=== PATIENT | female | born 1980 | race Caucasian/White ===

== ENCOUNTER 2021-01-23 06:16 | Emergency (ER) | payer OTHER ==
[~2021-01-23] VITALS: Ht 167.6 cm; Wt 81.0 kg
[~2021-01-23 06:16] MED LIST: AMOXICILLIN875 MG PO; AUGMENTIN875TAB PO; BACTRIM DS1 TAB PO; BENZONATATE200 MG PO; FLEXERIL OR; FLONASE NASAL50 MCG; LORTAB 1010 MG PO; MUCINEX600 MG PO; NAPROSYN500 MG PO; NO; PERCOCET 5/325M1 TAB PO; PRILOSEC40 MG PO; ZITHROMAX250 MG PO; ZPAK PO
[2021-01-23] MEDS ORDERED: LACTULOSE PO (06:44)
[2021-01-23] MEDS ORDERED: TESSALON PERLE100 MG (06:44)
[2021-01-23] MEDS ORDERED: ALBUTEROL SUL0.083 % IN (06:45)
[2021-01-23] MEDS ORDERED: DEXILANT60 MG PO ×2 (06:45→07:17)
[2021-01-23] MEDS ORDERED: VENTOLIN HFA IN (07:16)
[2021-01-23] MEDS ORDERED: TESSALON PERLE100 MG PO (07:16)
[2021-01-23 07:29] LABS: GFR > 60 ML/MIN (>=60 (CALC)); GFR FOR AFR.AMER. > 60 ML/MIN (>=60 (CALC))
[2021-01-23 07:40] LABS: HEMATOCRIT 41.3 % (37.0-47.0); HEMOGLOBIN 13.4 g/dl (12.0-16.0); IMMATURE GRANULOCYTES 0.2 % (0.0-5.0); MEAN CELL VOLUME 91.8 fL CALC (80.0-100.0); MEAN CORPUSCULAR HGB 29.8 pG CALC (26.0-32.0); MEAN CORPUSCULAR HGB CONC 32.4 g/dL CAL (32.0-36.0); NEUT# 3.8 thou/uL (2.00-7.15); RED BLOOD COUNT 4.5 mill/uL (4.20-5.60); RED CELL DISTRI WIDTH 13.4 % (11.5-15.5)
[2021-01-23 07:57] LABS: ALBUMIN 3.8 g/dL (3.2-5.0); ALKALINE PHOSPHATASE 83 u/l (38-126); AMYLASE 71 u/l (30-110); ANION GAP 12 (6-22 (CALC)); BUN 14 mg/dL (7-17); BUN/CREATININE RATIO 19 (12-20 (CALC)); CARBON DIOXIDE 23 mmol/l (22-30); CHLORIDE 105 mmol/l (95-108); CREATININE 0.8 mg/dL (0.5-1.0); GFR > 60 ML/MIN (>=60 (CALC)); GFR FOR AFR.AMER. > 60 ML/MIN (>=60 (CALC)); LIPASE 174 u/l (23-300); POTASSIUM 4.2 mmol/l (3.5-5.1); SODIUM 136 mmol/l (137-146); TOTAL PROTEIN 7.4 g/dL (6.3-8.2)
[2021-01-23 07:58] LABS: BILIRUBIN, TOTAL 0.2 mg/dL (0.0-1.4); SGOT/AST 34 u/l (14-36)
[2021-01-23 08:02] LABS: URINE BILIRUBIN - DIPSTICK NEGATIVE (NEGATIVE); URINE BLOOD DIPSTICK NEGATIVE (NEGATIVE); URINE COLOR YELLOW; URINE GLUCOSE - DIPSTICK NEGATIVE (NEGATIVE); URINE KETONE NEGATIVE (NEGATIVE); URINE LEUK ESTERASE NEGATIVE (NEGATIVE); URINE PROTEIN - DIPSTICK NEGATIVE (NEG-TRACE); URINE SPECIFIC GRAVITY 1.025; URINE UROBILINOGEN - DIPSTICK 0.2 E.U./dL (0.2)
[2021-01-23 08:05] LABS: URINE NITRITE - DIPSTICK NEGATIVE (Negative)
[2021-01-23] MEDS ORDERED: DECADRON6 MG PO ×2 (10:39→14:45)
[2021-01-23] MEDS ORDERED: CITRATE OF MEGNESIA PO (10:39)
[2021-01-23] MEDS ORDERED: ZPAK PO ×2 (10:39→14:45)
[2021-01-23 10:48] VITALS: BP 112/54
[2021-01-23] MEDS ORDERED: ZOFRAN4 M1 PO ×2 (11:10→14:45)
== END 2021-01-23 11:04 | disposition home or self-care (01) | DRG 177 ==
LOC: ED 06:16
PROVIDERS: Family Medicine
DX: U07.1 COVID-19 (principal); J12.82 Pneumonia due to coronavirus disease 2019; K59.00 Constipation, unspecified; N83.201 Unspecified ovarian cyst, right side
CPT/HCPCS: Q9967

== ENCOUNTER 2024-05-02 18:58 | Emergency (ER) | payer OTHER ==
[~2024-05-02] VITALS: Ht 167.6 cm; Wt 72.0 kg
[~2024-05-02 18:58] MED LIST changes: +ALBUTEROL SUL0.083 % IN; +CITRATE OF MEGNESIA PO; +DECADRON6 MG PO; +DEXILANT60 MG PO; +LACTULOSE PO; +TESSALON PERLE100 MG; +TESSALON PERLE100 MG PO; +VENTOLIN HFA IN; +ZOFRAN4 M1 PO
[2024-05-02] MEDS ORDERED: LIDOCAINE W/ EPINEPHRINE 10 MG/ML INJ STI STA (19:37)
[2024-05-02] MEDS ORDERED: HYDROcodone 5 MG/Acetaminophen 325 MG/COMBO PO STA (19:37)
[2024-05-02] MEDS ORDERED: POVIDONE IODINE 0.5 OZ/BTL TOP STA (19:37)
[2024-05-02] MEDS ORDERED: DOXYCYCLINE HYCLATE 100 MG/CAP PO ONE (19:40)
[2024-05-02] MEDS ORDERED: VIBRAMYCIN100 M2 PO (19:58)
[2024-05-02 20:25] VITALS: BP 126/90
== END 2024-05-02 20:45 | disposition home or self-care (01) | DRG 603 ==
LOC: ED 18:58
PROC: 0H97XZZ Drainage of Abdomen Skin, External Approach (ICD-10-PCS; principal; 2024-05-02)
DX: L02.211 Cutaneous abscess of abdominal wall (principal); K21.9 Gastro-esophageal reflux disease without esophagitis